=== PATIENT | male | born 1945 | race Caucasian/White ===

== ENCOUNTER 2022-01-02 15:34 | Emergency (ER) | payer MEDICARE, SELFPAY ==
[2022-01-02 15:45] VITALS: BP 124/97; PULSE 63; RESP 18; TEMP 36.3; O2SAT 96; BMI 28.1
[2022-01-02 16:00] VITALS: O2SAT 97
--- NOTE | 2022-01-02 16:01 | CRLHL7_ITS ---
For Patients: As a result of the Cures Act, medical imaging exams and procedure reports are released immediately into your electronic medical record. You may view this report before your referring provider. If you have questions, please contact your health care provider. INDICATION: Shortness of breath. TECHNIQUE: Chest 2 views. COMPARISON: None. FINDINGS: Cardiovascular and mediastinum: Prominent heart size. Tortuous aorta. Lungs and pleural spaces: Bibasilar atelectasis.. No sign of infiltrate or mass. No sign of pleural effusion. No pneumothorax. Bones and soft tissues: No significant findings. IMPRESSION: Prominent heart size without acute cardiopulmonary abnormality. Dictated by Vitaly Starks MD @ 01/02/2022 4:40:50 PM (Electronically Signed)
[2022-01-02 16:48] LABS: Basophils Percent Auto 0.5 % (0.0-3.0); Eosinophils Percent Auto 1.6 % (0.0-7.0); Hemoglobin* 14.7 gm/dL (13.5-17.5); Lymphocytes Percent Auto 48.2 % (20-44); Mean Corpuscular HGB Conc 34 gm/dL (32-36); Mean Corpuscular Hemoglobin 35 pg (26-34); Mean Corpuscular Volume 102 fL (80-100); Monocytes Percent Auto 9.6 % (0.0-11.0); Neutrophils Percent Auto 40.1 % (42.0-72.0); Platelet Count* 140 K/uL (140-440); RDW Coefficient of Variation % 12.6 % (11.5-15.5); Red Blood Count 4.23 m/uL (4.30-5.90); White Blood Count* 3.84 K/uL (4.50-11.00)
[2022-01-02 17:01] LABS: Albumin* 4.4 g/dL (3.3-5.0); Chloride* 104 mmol/L (96-114)
[2022-01-02 17:02] LABS: Potassium* 4.2 mmol/L (3.6-5.1); Sodium* 140 mmol/L (135-149)
[2022-01-02 17:04] LABS: Creatinine* 0.7 mg/dL (0.5-1.5); Est. Creatinine Clearance* 63.83; Estimated Glomerular Filt Rate 96 ml/min
[2022-01-02 17:05] LABS: Alanine Aminotransferase* 14 U/L (4-50); Alkaline Phosphatase* 77 U/L (40-150); Aspartate Amino Transferase* 21 U/L (12-35); Bilirubin Direct* 0.1 mg/dL (0.0-0.5); Bilirubin Total* 0.6 mg/dL (0.1-1.5); Blood Urea Nitrogen* 16 mg/dL (7-30); Calcium* 9.2 mg/dL (8.4-10.6); Carbon Dioxide* 26 mmol/L (20-32); Glucose* 95 mg/dL (60-115); Total Protein* 7.4 g/dL (6.0-8.3)
[2022-01-02 17:11] LABS: C Reactive Protein* < 0.5 mg/dL (0.5-1.0)
[2022-01-02 17:11] LABS: Appearance Urine Clear (Clear); Bilirubin Urine Negative (Negative); Blood Urine Negative (Negative); Color Urine Yellow (Yellow); Glucose Urine Negative (Negative); Ketones Urine Negative (Negative); Leukocyte Esterase Urine Negative (Negative); Nitrite Urine Negative (Negative); Protein Urine Negative (Negative); Urobilinogen Urine 0.2 (0.2-1.0)
[2022-01-02 17:14] LABS: RBC Urine 0-2 (0-2); Squamous Epithelial Cell Urine Few (None-Few); WBC Urine 0-2 (0-5)
[2022-01-02 17:17] LABS: Slide Review Reflex No; Troponin I* < 0.01 ng/mL (0.01-0.04)
[2022-01-02 17:30] VITALS: BP 114/86; BP 127/96; PULSE 61; PULSE 70; RESP 11; RESP 15; O2SAT 96; O2SAT 97
--- NOTE | 2022-01-02 17:36 | ED_ITS ---
HPI - General Adult General Chief complaint: Weakness Stated complaint: Short of breath, weak, fell yesterday Time Seen by Provider: 01/02/22 15:40 Source: patient Mode of arrival: ambulatory History of Present Illness HPI narrative: Patient coming in today concerned about increasing weakness. States that in the last 10 days he has fallen twice after losing his balance. He does have a history of Parkinson's disease. He is concerned that for several weeks now he has been feeling more tired than usual. He complains of some shortness of breath with physical activity. He denies chest pain. No fevers or chills. No nausea or vomiting. No changes in his appetite. No changes in his sleeping patterns. He denies any changes in urinary or bowel habits. He is concerned that he might be having heart trouble as he read somewhere that shortness of breath can potentially mean that your heart is failing. Again this is been going on for about 2 and half to 3 weeks. Related Data Allergies Allergy/AdvReac Type Severity Reaction Status Date / Time bee venom protein (honey bee) Allergy Verified 01/02/22 15:45 Review of Systems Status of ROS: Reports: 10 or more systems reviewed and unremarkable except as noted in History and below PFSH PFS Social History Smoking Status: Never smoker Do you use any of these nicotine containing products: None Second hand tobacco smoke exposure: No How often do you have a drink containing alcohol: 2-3 times a week How many standard drinks containing alcohol do you have on a typical day: 1 or 2 How often do you have six or more drinks on one occasion: Never AUDIT-C Alcohol total score: 3 Non-prescribed substance use: denies use service: Yes Exam Narrative: Exam Narrative: Well-nourished well-developed patient in no acute distress. Alert and oriented. Answers questions appropriately. Mood and affect are appropriate. Thoughts are goal oriented and rational. No tangential or magical thinking noted. Patient speaks in full sentences without needing to catch his breath. Speech is not slurred or pressured. HEENT: Normocephalic atraumatic. Pupils are equally round reactive to light. Extraocular muscles are intact. Conjunctivae are moist without any icterus noted. Moist mucous membranes. Posterior pharynx is normal. Neck is soft without any lymphadenopathy or thyromegaly. No masses are appreciated. Cardiovascular: Heart is regular rate and rhythm S1 and S2 are present without any murmurs. Lungs: Clear to auscultation bilaterally no wheezes rhonchi or rales are appreciated. Patient takes deep breaths without any discomfort. Abdomen: Soft and nontender nondistended with normal bowel sounds. No guarding or rebound. No masses or organomegaly appreciated. Extremities: Patient has trace edema on the left lower extremity and 1+ pitting edema on the right. This is not new. Skin: Well perfused without any obvious rashes. Skin is very dry and flaky. Const: Vital Signs, click to edit/add: Vital Signs - 24 hr 01/02/22 15:45 01/02/22 16:00 Temperature 97.4 F L Pulse Rate [Apical ] 63 Respiratory Rate 18 Blood Pressure [Ri ght Upper Arm] 124/97 H Pulse Oximetry 96 97 Oxygen Delivery Me thod Room Air Course Course Hospital Course: Basic blood work was done today was within normal limits. He EKG shows atrial flutter with a variable AV block, this is not new and unchanged from a previous EKG. Pulse is under control at 66. Vital Signs Vital signs: Initial Vital Signs Temperature 97.4 F L 01/02/22 15:45 Temperature Source Temporal Artery Scan 01/02/22 15:45 Pulse Rate 63 01/02/22 15:45 Pulse Rhythm 01/02/22 15:45 Respiratory Rate 18 01/02/22 15:45 Blood Pressure 124/97 H 01/02/22 15:45 Blood Pressure Mean 106 01/02/22 15:45 Blood Pressure Position Supine 01/02/22 15:45 Pulse Oximetry 96 01/02/22 15:45 Oxygen Delivery Method 01/02/22 15:45 Vital Signs Temperature 97.4 F L 01/02/22 15:45 Pulse Rate 63 01/02/22 15:45 Respiratory Rate 18 01/02/22 15:45 Blood Pressure 124/97 H 01/02/22 15:45 Pulse Oximetry 96 01/02/22 15:45 Oxygen Delivery Method 01/02/22 15:45 Temperature 97.4 F L 01/02/22 15:45 Pulse Rate 63 01/02/22 15:45 Respiratory Rate 18 01/02/22 15:45 Blood Pressure 124/97 H 01/02/22 15:45 Pulse Oximetry 97 01/02/22 16:00 Oxygen Delivery Method 01/02/22 15:45 Medical Decision Making MDM Narrative Medical decision making narrative: 76-year-old male with about 3 weeks of increased fatigue, decreased balance, mild shortness of breath with exertion. No acute findings today in the ED. I do think that this likely is related to his Parkinson's disease and age. I do want him to follow up with primary care provider to discuss any further testing as they see fit. Patient was agreeable with this plan and had no other questions Medical Records Medical records reviewed: Yes I reviewed the patient's medical records Lab Data Lab results reviewed: Yes I reviewed the patient's lab results Labs: Lab Results 01/02/22 01/02/22 01/02/22 Range/Units 16:42 16:42 17:05 WBC 3.84 L (4.50-11.00) K/uL RBC 4.23 L (4.30-5.90) m/uL Hgb 14.7 (13.5-17.5) gm/dL Hct 43.0 (37.0-53.0) % MCV 102 H (80-100) fL MCH 35 H (26-34) pg MCHC 34 (32-36) gm/dL RDW Coeff of Alena 12.6 (11.5-15.5) % Plt Count 140 (140-440) K/uL Neut % (Auto) 40.1 L (42.0-72.0) % Lymph % (Auto) 48.2 H (20-44) % Harvey % (Auto) 9.6 (0.0-11.0) % Eos % (Auto) 1.6 (0.0-7.0) % Baso % (Auto) 0.5 (0.0-3.0) % Neut # (Auto) 1.50 L (1.7-7.0) K/uL Lymph # (Auto) 1.90 (0.90-2.90) K/uL Harvey # (Auto) 0.40 (0.00-0.90) K/UL Eos # (Auto) 0.10 (0.00-0.50) K/uL Baso # (Auto) 0.00 (0.00-0.30) K/uL Abs Immat Gran (auto) 0.00 (0.00-0.30) K/uL Sodium 140 (135-149) mmol/L Potassium 4.2 (3.6-5.1) mmol/L Chloride 104 (96-114) mmol/L Carbon Dioxide 26 (20-32) mmol/L BUN 16 (7-30) mg/dL Creatinine 0.7 (0.5-1.5) mg/dL Estimated Creat Clear 63.83 Estimated GFR 96 ml/min Glucose 95 (60-115) mg/dL Calcium 9.2 (8.4-10.6) mg/dL Total Bilirubin 0.6 (0.1-1.5) mg/dL Direct Bilirubin 0.1 (0.0-0.5) mg/dL AST 21 (12-35) U/L ALT 14 (4-50) U/L Alkaline Phosphatase 77 (40-150) U/L Troponin I < 0.01 L (0.01-0.04) ng/mL C-Reactive Protein < 0.5 L (0.5-1.0) mg/dL Total Protein 7.4 (6.0-8.3) g/dL Albumin 4.4 (3.3-5.0) g/dL Urine Color Yellow (Yellow) Urine Appearance Clear (Clear) Urine pH 6.0 (5.0-8.5) Ur Specific [place] 1.020 (1.000-1.030) Urine Protein Negative (Negative) Urine Glucose (UA) Negative (Negative) Urine Ketones Negative (Negative) Urine Blood Negative (Negative) Urine Nitrite Negative (Negative) Urine Bilirubin Negative (Negative) Urine Urobilinogen 0.2 (0.2-1.0) Ur Leukocyte Esterase Negative (Negative) Urine RBC 0-2 (0-2) Urine WBC 0-2 (0-5) Ur Squamous Epith Cells Few (None-Few) Urine Bacteria None (None) Imaging Data Chest x-ray: Attestation: I have reviewed the pertinent imaging results. My impression: No acute findings Radiologist's impression: TECHNIQUE: Chest 2 views. COMPARISON: None. FINDINGS: Cardiovascular and mediastinum: Prominent heart size. Tortuous aorta. Lungs and pleural spaces: Bibasilar atelectasis.. No sign of infiltrate or mass. No sign of pleural effusion. No pneumothorax. Bones and soft tissues: No significant findings. IMPRESSION: Prominent heart size without acute cardiopulmonary abnormality. ECG Data Attestation: I personally reviewed and interpreted this ECG as follows: (Atrial flutter, variable AV block, heart rate 66, pulmonary disease pattern) Discharge Plan Discharge Clinical Impression: Breath shortness, Weakness, Loss of balance Patient Disposition: Home, Self-Care Condition: Stable Additional Instructions: Recommend you follow-up with your primary care provider to discuss further testing as they see fit. Would encourage against vigorous physical activity that causes shortness of breath until you have a follow-up appointment. Return to the ER if your symptoms worsen. Follow Up/Referrals: Bc Florian MD [Primary Care Provider] - Stand Alone Forms: [email or web address] Info Instructions
== END 2022-01-02 18:01 | disposition home or self-care (01) ==
PROVIDERS: Emergency Provider Family Medicine; PCP Family Medicine
DX: R06.02 Shortness of breath (principal); R53.1 Weakness
CPT/HCPCS: 36415; 71046; 80048; 80076; 81001; 84484; 85025; 86140; 87086; 93005; 94761; 99284; 99285